=== PATIENT | male | born 1950 | race Caucasian/White ===

== ENCOUNTER 2019-06-21 11:30 | Emergency (ER) | payer MEDICARE, OTHER ==
[~2019-06-21] VITALS: Ht 175 cm; Wt 96.4 kg
--- NOTE | 2019-06-21 11:56 | ED General ---
General Chief Complaint: Abdominal/GI Problems Stated Complaint: VOMITING;DIARRHEA Nursing Triage Note: Started getting sick yesterday afternoon with diarrhea and vomiting. States he has had diarrhea 7-8 times today and has vomited twice. States his abdomen is not really painful but is crampy. Denies fevers. Has not been around anyone sick that he knows of. Nursing Sepsis Screen: No Definite Risk History of Present Illness Date Seen by Provider: Jun 21, 2019 Time Seen by Provider: 11:51 Initial Comments 68 yo male yesterday started with some abd uneasiness followed by episodic cramping and diarrhea occ vomiting states today he's had 7-8 episodes of diarrhea vomited twice no fevers no urinary sx's no significant or prolonged abd pain never light headed, no syncope no travel outside of [place] no ingestion untreated water or bad food, no one else sick denies hx of any GI problems only med hx given is htn and high cholesterol Allergies and Home Medications Allergies Coded Allergies: No Known Drug Allergies (Unverified , 06/21/19) Patient Home Medication List Home Medication List Reviewed: Yes Review of Systems Review of Systems Constitutional: No chills, No dizziness, No fever EENTM: no symptoms reported Respiratory: no symptoms reported Gastrointestinal: abdominal pain, diarrhea, nausea, vomiting Genitourinary: no symptoms reported Musculoskeletal: no symptoms reported Skin: no symptoms reported Past Zehjwdb-Rgddzl-Hsrado Hx Patient Social History Alcohol Use: Rarely Uses Recreational Drug Use: No Smoking Status: Never a Smoker 2nd Hand Smoke Exposure: No Recent Foreign Travel: No Contact w/Someone Who Travel: No Recent Infectious Disease Expo: No Recent Hopitalizations: No Physical Abuse: No Sexual Abuse: No Mistreated: No Fear: No Seasonal Allergies Seasonal Allergies: No Past Medical History Surgeries: No Respiratory: No Cardiac: Yes High Cholesterol, Hypertension Neurological: No Genitourinary: No Gastrointestinal: No Musculoskeletal: No Endocrine: No HEENT: No Cancer: No Psychosocial: No Integumentary: No Blood Disorders: No Physical Exam Vital Signs Vital Signs - First Documented 06/21/19 11:35 Temp 36.0 Pulse 62 Resp 18 B/P (MAP) 139/82 (101) Pulse Ox 98 Capillary Refill : Less Than 3 Seconds Height, Weight, BMI Height: '" Weight: lbs. oz. kg; 31.00 BMI Method: General Appearance: No Apparent Distress Eyes: Bilateral Eye PERRL, Bilateral Eye EOMI HEENT: PERRL/EOMI, Pharynx Normal, Moist Mucous Membranes Neck: Supple Respiratory: Lungs Clear, Normal Breath Sounds Cardiovascular: Regular Rate, Rhythm, No Murmur Gastrointestinal: Normal Bowel Sounds, Non Tender, Soft Extremity: Normal Capillary Refill, No Pedal Edema Progress/Results/Core Measures Suspected Sepsis Recent Fever Within 48 Hours: No Infection Criteria Present: Suspected New Infection New/Unexplained Altered Menta: No Sepsis Screen: No Definite Risk SIRS Temperature: Pulse: 62 Respiratory Rate: 18 Laboratory Tests 06/21/19 11:47: White Blood Count 12.1H Blood Pressure 139 /82 Mean: 101 Laboratory Tests 06/21/19 11:47: Creatinine 1.30, Platelet Count 245, Total Bilirubin 1.1H Results/Orders Lab Results Laboratory Tests Test 06/21/19 11:47 Range/Units White Blood Count 12.1 H 4.3-11.0 10^3/uL Red Blood Count 5.11 4.35-5.85 10^6/uL Hemoglobin 16.3 13.3-17.7 G/DL Hematocrit 48 40-54 % Mean Corpuscular Volume 95 80-99 FL Mean Corpuscular Hemoglobin 32 25-34 PG Mean Corpuscular Hemoglobin Concent 34 32-36 G/DL Red Cell Distribution Width 12.7 10.0-14.5 % Platelet Count 245 130-400 10^3/uL Mean Platelet Volume 9.2 7.4-10.4 FL Neutrophils (%) (Auto) 85 H 42-75 % Lymphocytes (%) (Auto) 10 L 12-44 % Monocytes (%) (Auto) 5 0-12 % Eosinophils (%) (Auto) 0 0-10 % Basophils (%) (Auto) 0 0-10 % Neutrophils # (Auto) 10.2 H 1.8-7.8 X 10^3 Lymphocytes # (Auto) 1.3 1.0-4.0 X 10^3 Monocytes # (Auto) 0.6 0.0-1.0 X 10^3 Eosinophils # (Auto) 0.0 0.0-0.3 10^3/uL Basophils # (Auto) 0.0 0.0-0.1 10^3/uL Sodium Level 143 135-145 MMOL/L Potassium Level 4.4 3.6-5.0 MMOL/L Chloride Level 105 98-107 MMOL/L Carbon Dioxide Level 23 21-32 MMOL/L Anion Gap 15 H 5-14 MMOL/L Blood Urea Nitrogen 27 H 7-18 MG/DL Creatinine 1.30 0.60-1.30 MG/DL Estimat Glomerular Filtration Rate 55 BUN/Creatinine Ratio 21 Glucose Level 148 H 70-105 MG/DL Calcium Level 10.2 H 8.5-10.1 MG/DL Corrected Calcium 8.5-10.1 MG/DL Total Bilirubin 1.1 H 0.1-1.0 MG/DL Aspartate Amino Transf (AST/SGOT) 20 5-34 U/L Alanine Aminotransferase (ALT/SGPT) 18 0-55 U/L Alkaline Phosphatase 65 40-136 U/L Total Protein 8.3 H 6.4-8.2 GM/DL Albumin 5.2 H 3.2-4.5 GM/DL Lipase 23 8-78 U/L My Orders Orders - FRANKIE MIKE MD Iv/Invasive Line Insertion .IV start (06/21/19 11:42) Cbc With Automated Diff (06/21/19 11:42) Comprehensive Metabolic Panel (06/21/19 11:42) Lipase (06/21/19 11:42) Urinalysis (06/21/19 11:42) Ns Iv 1000 Ml (Sodium Chloride 0.9%) (06/21/19 12:15) Vital Signs/I&O 06/21/19 11:35 Temp 36.0 Pulse 62 Resp 18 B/P (MAP) 139/82 (101) Pulse Ox 98 Capillary Refill : Less Than 3 Seconds Blood Pressure Mean: 101 Progress Note : Progress Note pt has had no further diarrhea here some intermittent abd cramping labs pretty benign WBC 12,000 pt has no urinry sx's nor hx of such Departure Impression Primary Impression: Gastroenteritis Disposition: 01 HOME, SELF-CARE Condition: Stable Departure-Patient Inst. Decision time for Depature: 13:08 Patient Instructions: Viral Gastroenteritis, Adult (DC) Scripts Diphenoxylate HCl/Atropine (Lomotil 2.5-0.025 mg Tablet) 1 Each Tablet 1 EACH PO TID for Diarrhea, #15 TAB Prov: FRANKIE MIKE MD 06/21/19 RFANKIE MIKE MD Jun 21, 2019 11:56
[2019-06-21 12:15] LABS: BASOPHILS % (AUTO) 0 % (0-10); EOSINOPHILS % (AUTO) 0 % (0-10); HEMATOCRIT 48 % (40-54); HEMOGLOBIN 16.3 G/DL (13.3-17.7); LYMPHOCYTES % (AUTO) 10 % (12-44); MEAN CORPUSCULAR HEMOGLOBIN 32 PG (25-34); MEAN CORPUSCULAR HGB CONC 34 G/DL (32-36); MEAN CORPUSCULAR VOLUME 95 FL (80-99); MEAN PLATELET VOLUME 9.2 FL (7.4-10.4); MONOCYTES % (AUTO) 5 % (0-12); PLATELET COUNT 245 10^3/uL (130-400); RED CELL DISTRIBUTION WIDTH 12.7 % (10.0-14.5); WHITE BLOOD COUNT 12.1 10^3/uL (4.3-11.0)
[2019-06-21] MEDS ORDERED: NS IV 1000 ML 1,000 ML IV SCH (12:15)
[2019-06-21 12:16] LABS: LYMPHOCYTES # (AUTO) 1.3 X 10^3 (1.0-4.0); MONOCYTES # (AUTO) 0.6 X 10^3 (0.0-1.0); NEUTROPHILS # (AUTO) 10.2 X 10^3 (1.8-7.8); NEUTROPHILS % (AUTO) 85 % (42-75)
[2019-06-21 12:47] LABS: ALANINE AMINOTRANSFERASE 18 U/L (0-55); ALKALINE PHOSPHATASE 65 U/L (40-136); BILIRUBIN,TOTAL 1.1 MG/DL (0.1-1.0); BUN/CREATININE RATIO 21; CALCIUM 10.2 MG/DL (8.5-10.1); CARBON DIOXIDE 23 MMOL/L (21-32); CHLORIDE 105 MMOL/L (98-107); GFR ESTIMATED 55; GLUCOSE 148 MG/DL (70-105); POTASSIUM 4.4 MMOL/L (3.6-5.0); SODIUM 143 MMOL/L (135-145)
[2019-06-21 12:48] LABS: ALBUMIN 5.2 GM/DL (3.2-4.5); LIPASE 23 U/L (8-78); TOTAL PROTEIN 8.3 GM/DL (6.4-8.2)
[2019-06-21] MEDS ORDERED: DIPH1TAB PO (13:08)
[2019-06-21 13:12] VITALS: BP 125/79
== END 2019-06-21 13:11 | disposition home or self-care (01) ==
LOC: ER FS 11:32
DX: K52.9 Noninfective gastroenteritis and colitis, unspecified (principal); I10 Essential (primary) hypertension; E78.00 Pure hypercholesterolemia, unspecified
CPT/HCPCS: 36415; 80053; 83690; 85025